=== PATIENT | female | born 1980 | race Caucasian/White ===

== ENCOUNTER 2024-08-05 13:00 | Emergency (ER) | payer BC ==
[2024-08-05] MEDS ORDERED: PANTOPRAZOLE 40 MG INJ ONE ×3 (15:00→16:39)
[2024-08-05] MEDS ORDERED: NA CHLORIDE 0.9% 1,000 ML ONE (15:00)
[2024-08-05] MEDS ORDERED: ONDANSETRON 4 MG/2 ML VIAL ONE ×2 (15:00→16:29)
[2024-08-05 15:04] LABS: Specific Gravity 1.029 (1.005-1.030)
[2024-08-05 15:05] LABS: Specific Gravity 1.029 (1.005-1.030); Sqamous Epithelial <5 /HPF (None Seen); Urine Bacteria <20 /HPF (<20); Urine Bilirubin NEGATIVE (Negative); Urine Blood 2+ (Negative); Urine Clarity Turbid (Clear); Urine Color Yellow (Yellow); Urine Crystals Unidentified Few /HPF (None Seen); Urine Culture Reflex Order NOT NEEDED; Urine Glucose NEGATIVE (Negative); Urine Ketones 1+ (Negative); Urine Microscopic Reflex YN ORDER UMIC; Urine Mucus 1+ /HPF (None Seen); Urine Nitrite NEGATIVE (Negative); Urine Protein 1+ (Negative); Urine RBC <5 /HPF (None Seen); Urine Urobilinogen 1+ (Normal); Urine WBC <5 /HPF (<5)
[2024-08-05 15:37] LABS: Albumin/Globulin Ratio 0.3 (1.1-1.8); Anion Gap 13.1 mEq/L (5.0-15.0); Bilirubin Total 1.3 mg/dL (0.2-1.0); Globulin 5.9 g/dL (2.3-3.5); Potassium 4.1 mEq/L (3.5-5.1); Protein, Total 7.9 g/dL (6.4-8.2)
[2024-08-05 15:45] LABS: Absolute Lymphocytes (CBC) 0.8 K/uL (0.7-4.9); Absolute Monocytes 0.4 K/uL (0.1-1.3); Absolute Neutrophil 3.9 K/uL (1.8-8.0); Basophils % 0.8 % (0-1.3); Eosinophils % 0.1 % (0-4.4); Hematocrit 16.1 % (36.0-45.0); Lymphocytes % 15.5 % (15.3-44.8); MCH 29.5 pg (27.0-35.0); MCHC 33.4 g/dL (32.0-36.0); MCV 88.4 fL (80-100); MPV 9.3 fL (7.6-11.3); Monocytes % 8.4 % (3.3-12.3); Neutrophils % 75.2 % (41.7-73.7); Nucleated Red Blood Cells % 0.1 % (0-0); Platelets 79 thou/uL (152-406); RBC Red Blood Cell Count 1.82 M/uL (3.86-4.86); Red Cell Distribution Width 19.3 % (12.1-15.2)
[2024-08-05 15:52] LABS: Hemoglobin 5.4 g/dL (12.0-15.0)
[2024-08-05] MEDS ORDERED: NA CHLORIDE 0.9% 250 ML ONE ×3 (16:20→19:17)
[2024-08-05] MEDS ORDERED: OCTREOTIDE ACETATE 100 MCG/ML ONE (16:20)
[2024-08-05] MEDS ORDERED: CEFTRIAXONE 1000 MG/VIAL ONE (16:31)
--- NOTE | 2024-08-05 16:32 | RAD REPORT ---
EXAMINATION: CT ABDOMEN AND PELVIS WITH CONTRAST CLINICAL INDICATION: Abdominal pain TECHNIQUE: CT abdomen and pelvis was performed, after the administration of 100 cc Isovue-300.. Sagit morelia and coronal reconstructions were obtained. One or more of the following dose reduction techniques were used: Automated exposure control, adjustment of the mA and kV according to patient si ze, and iterative reconstruction. Unless otherwise specified, incidental findings do not require dedicated imaging follow-up. [id number]. Oral contrast was not given which limits evaluation of bowel and appendix. COMPARISON: ultrasound FINDINGS: Cirrhotic liver. 12 cm bilobed mass extends from the inferior aspect of the left lobe of the liver. I t is heterogeneous. 2 cm heterogeneous mass abuts the anterior aspect of the left lobe of the liver. The remainder of the liver is heterogeneous containing small and larger areas of low density. Some of the hepatic veins are narrowed. The portal vein and IVC are patent. Left upper quadrant varices. The gallbladder is compressed by the large liver mass. The spleen is mildly enlarged. The pancreas right adrenal and kidneys unremarkable. Mild enlargement left adrenal gland likely benig n Normal appendix. No adnexal mass No evidence of diverticulitis. : IMPRESSION: Cirrhosis. The liver is inhomogeneous containing low-density areas. This probably represents a combin ation of inflammation, fatty infiltration and regenerative/dysplastic nodules. A diffuse hepatocellular carcinoma is another consideration but probably less likely. Biopsy is recommended. Th is can be performed with ultrasound guidance. 12 cm lobulated mass extends from the inferior aspect of the left lobe of the liver. This probably re presents hepatocellular carcinoma. An unusual form of macro nodules probably less likely. Biopsy is recommended. This can be performed with ultrasound guidance. 2 cm mass abutting the anterior aspect of the liver presumably neoplastic. Again an inflammatory proc ess is another consideration.
--- NOTE | 2024-08-05 17:27 | EDPHYS ---
Physician Documentation [facility] Name: Barbara Purvis Age: 43 yrs Sex: Female : 1980 Arrival Date: 08/05/2024 Time: 13:00 Bed 2 Private MD: ED Physician Darvin Amaro HPI: 08/05 17:23 This 43 yrs old Female presents to ER via Wheelchair with complaints of Vomiting - kb blood. 17:23 Pt is a 43 year old female who presents for vomiting blood that started last night. kb States this happened for a couple of days a few weeks ago and went away on its own, but this time here is a lot more blood. Denies abd pain, blood in stool, fever. States she hasn't had hematemesis prior to the last episode. 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 - Infectious Disease History:: Denies. - Social history:: Smoking status: Patient denies any tobacco usage or history of. ROS: 17:21 Constitutional: As per HPI kb Exam: 17:21 Head/Face: Normocephalic, atraumatic. ENT: Moist Mucous membranes Cardiovascular: kb Regular rate Respiratory: Respirations even and unlabored. No increased work of breathing. Talking in full sentences Abdomen/GI: Soft, non-tender. No distention Skin: Warm, dry with normal turgor. Normal color. MS/ Extremity: Pulses equal, no cyanosis. Neurovascular intact. Full, normal range of motion. Neuro: Awake and alert, GCS 15, oriented to person, place, time, and situation. 17:21 Constitutional: The patient appears alert, awake, pale, Vital Signs: 13:13 BP 108 / 65; Pulse 112; Resp 16; Temp 98.3; Pulse Ox 100% ; ko1 15:06 BP 107 / 68; Pulse 116; Resp 16; Pulse Ox 100% ; me1 15:30 BP 115 / 71; Pulse 103; Resp 16; Pulse Ox 100% ; me1 16:27 Weight 61.23 kg; eb 16:30 BP 124 / 77; Pulse 97; Resp 15; Pulse Ox 100% ; me1 17:00 BP 121 / 69; Pulse 105; Resp 15; Pulse Ox 100% ; me1 18:00 BP 105 / 57; Pulse 96; Resp 15; Pulse Ox 100% ; me1 19:00 BP 124 / 77; Pulse 99; Resp 16; Pulse Ox 100% on R/A; al5 20:02 al5 20:02 see blood transfusion flow sheet for vitals al5 MDM: 13:10 Medical Screening Exam initiated kb 16:36 Differential diagnosis: GI bleed, cirrhosis, varicies. Data reviewed: vital signs, kb nurses notes. Consideration of Admission/Observation Escalation of care including admission/observation considered. pt will be transferred for GI. Management of patient was discussed with the following: Dr Castro, hospitalist at [facility], accepts pt for admission as long as ok with GI. GI requests CTA abdomen prior to transfer. Historians other than the Patient: Family Member: family. Care significantly affected by the following chronic conditions: Liver Disease. Counseling: I had a detailed discussion with the patient and/or guardian regarding the historical points, exam findings, and any diagnostic results supporting the discharge/admit diagnosis, lab results, radiology results, the need to transfer to another facility, [facility] does not immediately have the required specialist. 08/05 13:17 Order name: CBC with Diff 08/05 13:17 Order name: CMP; Complete Time: 15:38 kb 08/05 13:17 Order name: Lipase; Complete Time: 15:38 kb 08/05 13:17 Order name: Test, Urine; Complete Time: 15:08 kb 08/05 13:17 Order name: Urinalysis w/ reflexes; Complete Time: 15:08 kb 08/05 13:17 Order name: Type And Screen kb 08/05 15:52 Order name: Bb Add On eb 08/05 16:14 Order name: ABO/RH no charge; Complete Time: 16:15 EDGA 08/05 16:17 Order name: Packed RBCs (Additional Unit) EDGA 08/05 18:52 Order name: CBC Smear Scan EDGA 08/05 13:17 Order name: CT Abd/Pelvis - IV Contrast Only; Complete Time: 16:32 kb 08/05 16:36 Order name: CT Abdomen - Angio; Complete Time: 18:01 kb 08/05 16:53 Order name: CT Pelvis Angio; Complete Time: 18:01 eb 08/05 13:17 Order name: IV Saline Lock; Complete Time: 15:19 kb 08/05 13:17 Order name: Labs collected and sent; Complete Time: 15:19 kb Administered Medications: 15:19 Drug: Ondansetron IVP 4 mg IVP once; over 2 minutes Route: IVP; Site: left antecubital; me1 16:10 Follow up: Response: No adverse reaction; Nausea is decreased me1 15:19 Drug: NS 0.9% IV 1000 ml IV at 1 bolus Per protocol; to be given as a bolus over 60 me1 minutes Route: IV; Rate: 1 bolus; Site: left antecubital; 16:51 Follow up: Response: No adverse reaction; IV Status: Completed infusion; IV Intake: me1 1000ml 15:19 Drug: Pantoprazole IVP 40 mg IVP once Route: IVP; Site: left antecubital; me1 16:10 Follow up: Response: No adverse reaction me1 16:27 Drug: Pantoprazole IV 8 mg/hr IV at 25 ml/hr continuous; (Standard dilution is 80 mg in me1 250 mL NS) Route: IV; Rate: 25 ml/hr; Site: left antecubital; 18:55 Follow up: IV Status: Infusion continued upon transfer me1 16:27 Drug: Octreotide IV 50 mcg IV at calculated rate once Route: IV; Rate: calculated rate; wv1 Site: left antecubital; 16:50 Follow up: IV Status: Completed infusion me1 16:38 Drug: Rocephin IV 1 grams IV at calculated rate once; Given slow IV push per pharmacy me1 instructions Route: IV; Rate: calculated rate; Site: left antecubital; 16:50 Follow up: IV Status: Completed infusion me1 16:40 Drug: Pantoprazole IVP 40 mg IVP once Route: IVP; Site: left antecubital; me1 16:50 Follow up: Response: No adverse reaction me1 16:49 Drug: Ondansetron IVP 4 mg IVP once; over 2 minutes Route: IVP; Site: left antecubital; me1 16:50 Follow up: Response: No adverse reaction; Nausea is decreased me1 Disposition Summary: 08/05/24 17:26 Transfer Ordered Notes: Transfer Location: Other [facility] Reason: Higher level of care kb Condition: Stable kb Problem: new kb Symptoms: are unchanged kb Accepting Physician: Dr Castro(08/05/24 20:05) al5 Diagnosis - GI Bleed/ Gastrointestinal hemorrhage, unspecified kb - Liver disease, unspecified kb Forms: - Medication Reconciliation Form kb - SBAR form kb Addendum: 08/08/2024 08:56 Co-signature as Attending Physician, Darvin Amaro MD I reviewed the patient's care r t provided by the Advanced Practice Provider and agree with the diagnosis and treatment plan. Signatures: Dispatcher [employer] EDMelissa Martinez, SOLAR SALES ESTIMATOR-C SOLAR SALES ESTIMATOR-Ckb Desiree Zapata, RN RN ko1 Darvin Amaro MD MD rt Susie Francis RN RN me1 Rosalinda Brown RN RN al5 Corrections: (The following items were deleted from the chart) 08/05 17:27 17:26 Dr Hitchcock [facility] 17:28 16:36 Management of patient was discussed with the following: Dr Hitchcock, hospitalist at [facility], accepts pt for admission as long as ok with GI. GI requests CTA abdomen prior to transfer. : 17:27 Dr Castro al5
--- NOTE | 2024-08-05 17:27 | ER ---
Nurse's Notes [facility] Name: Barbara Purvis Age: 43 yrs Sex: Female : 1980 Arrival Date: 08/05/2024 Time: 13:00 Bed 2 Private MD: Diagnosis: GI Bleed/ Gastrointestinal hemorrhage, unspecified;Liver disease, unspecified Presentation: 08/05 13:13 Chief complaint: Patient states: vomiting dark red blood since yesterday, hx of ulcers, ko1 has happened before but was not seen for it. Coronavirus screen: At this time, the client does not indicate any symptoms associated with coronavirus-19. Ebola Screen: No symptoms or risks identified at this time. Initial Sepsis Screen: Does the patient meet any 2 criteria? No. Patient's initial sepsis screen is negative. Does the patient have a suspected source of infection? No. Patient's initial sepsis screen is negative. Risk Assessment: Do you want to hurt yourself or someone else? Patient reports no desire to harm self or others. Onset of symptoms was August 04, 2024 at 16:00. 13:13 Method Of Arrival: Wheelchair ko1 13:13 Acuity: PRESTON 3 ko1 Triage Assessment: 13:16 General: Appears in no apparent distress. ill, Behavior is calm, cooperative, ko1 appropriate for age. Pain: Denies pain. GI: Reports nausea, vomiting. 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 - Infectious Disease History:: Denies. - Social history:: Smoking status: Patient denies any tobacco usage or history of. Screenin:06 [facility] ED Fall Risk Assessment (Adult) History of falling in the last 3 months, me1 including since admission No falls in past 3 months (0 pts) Confusion or Disorientation No (0 pts) Intoxicated or Sedated No (0 pts) Impaired Gait No (0 pts) Mobility Assist Device Used No (0 pt) Altered Elimination No (0 pt) Score/Fall Risk Level 0 - 2 = Low Risk Maintained a safe environment, Provided non-skid footwear, Hourly rounding (assess needs \T\ fall precautionary measures) done. Abuse screen: Denies threats or abuse. Nutritional screening: No deficits noted. Tuberculosis screening: No symptoms or risk factors identified. Assessment: 15:06 General: Appears uncomfortable, ill, well developed, well nourished, Behavior is calm, me1 cooperative, appropriate for age, Reports vomiting dark red blood since yesterday, hx of ulcers, has happened before but was not seen for it. Pain: Denies pain. Neuro: Level of Consciousness is awake, alert, obeys commands, Oriented to person, place, time, situation, Appropriate for age. Cardiovascular: Patient's skin is warm and dry. Respiratory: Airway is patent Trachea midline Respiratory effort is even, unlabored, Respiratory pattern is regular, symmetrical. GI: Abdomen is flat, Reports nausea, vomiting, bloody emesis since yesterday. : No signs and/or symptoms were reported regarding the genitourinary system. EENT: No signs and/or symptoms were reported regarding the EENT system. Derm: Skin is intact, is healthy with good turgor, Skin is pink, warm \T\ dry. Musculoskeletal: No signs and/or symptoms reported regarding the musculoskeletal system. 17:00 Reassessment: Started first unit of PRBCs. me1 18:52 Reassessment: 1st unit of PRBCs completed. me1 19:12 General: Appears in no apparent distress. comfortable, Behavior is calm, cooperative. al5 Pain: Denies pain. Neuro: Level of Consciousness is awake, alert, obeys commands, Oriented to person, place, time, situation. Cardiovascular: Capillary refill < 3 seconds Patient's skin is warm and dry. Respiratory: Airway is patent Respiratory effort is even, unlabored, Respiratory pattern is regular, symmetrical. GI: Abdomen is flat, non-distended. : No signs and/or symptoms were reported regarding the genitourinary system. EENT: No signs and/or symptoms were reported regarding the EENT system. Derm: Skin is intact, is healthy with good turgor, Skin is pink, warm \T\ dry. normal. Musculoskeletal: No signs and/or symptoms reported regarding the musculoskeletal system. 19:13 General: Report called to AGAPITO Burrell at [facility] 5th floor. me1 20:03 Reassessment: report given to [facility] and performed blood check on blood al5 products being administered to patient. transfer of care given. Vital Signs: 13:13 BP 108 / 65; Pulse 112; Resp 16; Temp 98.3; Pulse Ox 100% ; ko1 15:06 BP 107 / 68; Pulse 116; Resp 16; Pulse Ox 100% ; me1 15:30 BP 115 / 71; Pulse 103; Resp 16; Pulse Ox 100% ; me1 16:27 Weight 61.23 kg; eb 16:30 BP 124 / 77; Pulse 97; Resp 15; Pulse Ox 100% ; me1 17:00 BP 121 / 69; Pulse 105; Resp 15; Pulse Ox 100% ; me1 18:00 BP 105 / 57; Pulse 96; Resp 15; Pulse Ox 100% ; me1 19:00 BP 124 / 77; Pulse 99; Resp 16; Pulse Ox 100% on R/A; al5 20:02 al5 20:02 see blood transfusion flow sheet for vitals al5 ED Course: 13:02 Patient arrived in ED. im 13:10 Melissa Borjas FNP-C is PHCP. kb 13:10 Darvin Amaro MD is Attending Physician. kb 13:16 Triage completed. ko1 13:16 Arm band placed on right wrist. Patient placed in waiting room, Patient notified of ko1 wait time. 14:41 Susie Francis, RN is Primary Nurse. me1 14:48 Susie Francis RN is Primary Nurse. me1 14:58 Test, Urine Sent. me1 14:58 Urinalysis w/ reflexes Sent. me1 14:58 Urine collected: clean catch specimen, cloudy, bogdan colored. me1 15:06 Patient has correct armband on for positive identification. Bed in low position. Call me1 light in reach. Side rails up X2. Provided Education on: POC. Verbalized understanding.. Client placed on continuous cardiac and pulse oximetry monitoring. NIBP monitoring applied. Pulse ox on. NIBP on. 15:06 No provider procedures requiring assistance completed. Initial lab(s) drawn, by [facility], [facility] sent to lab. T\T\S collected, blood band applied to patient. Inserted saline lock: 22 gauge in left antecubital area, using aseptic technique. 15:19 CBC with Diff Sent. me1 15:19 Type And Screen Sent. me1 15:19 CMP Sent. me1 15:19 Lipase Sent. me1 16:02 CT Abd/Pelvis - IV Contrast Only In Process Unspecified. EDMS 16:05 initiated a transfer with Erick from the [facility]. eb 16:10 Bb Add On Sent. me1 16:23 connected the Hospitalist workday consultant for [facility] with Melissa Osorio for patient transfer eb consultation. 16:46 Inserted saline lock: 22 gauge in left antecubital area, using aseptic technique. hb 17:28 CT Abdomen - Angio In Process Unspecified. EDMS 17:29 CT Pelvis Angio In Process Unspecified. EDMS 18:03 faxed angio results to transfer center. eb 18:44 administrative approval given by Erick Edmonds/ patient has been accepted to [facility] [id number]/ Dr. Grisel Castro has accepted the patient in transfer/ report to be called to [phone]. 20:04 Patient transferred, IV remains in place. al5 Administered Medications: 15:19 Drug: Ondansetron IVP 4 mg IVP once; over 2 minutes Route: IVP; Site: left antecubital; me1 16:10 Follow up: Response: No adverse reaction; Nausea is decreased me1 15:19 Drug: NS 0.9% IV 1000 ml IV at 1 bolus Per protocol; to be given as a bolus over 60 me1 minutes Route: IV; Rate: 1 bolus; Site: left antecubital; 16:51 Follow up: Response: No adverse reaction; IV Status: Completed infusion; IV Intake: me1 1000ml 15:19 Drug: Pantoprazole IVP 40 mg IVP once Route: IVP; Site: left antecubital; me1 16:10 Follow up: Response: No adverse reaction me1 16:27 Drug: Pantoprazole IV 8 mg/hr IV at 25 ml/hr continuous; (Standard dilution is 80 mg in me1 250 mL NS) Route: IV; Rate: 25 ml/hr; Site: left antecubital; 18:55 Follow up: IV Status: Infusion continued upon transfer me1 16:27 Drug: Octreotide IV 50 mcg IV at calculated rate once Route: IV; Rate: calculated rate; me1 Site: left antecubital; 16:50 Follow up: IV Status: Completed infusion me1 16:38 Drug: Rocephin IV 1 grams IV at calculated rate once; Given slow IV push per pharmacy me1 instructions Route: IV; Rate: calculated rate; Site: left antecubital; 16:50 Follow up: IV Status: Completed infusion me1 16:40 Drug: Pantoprazole IVP 40 mg IVP once Route: IVP; Site: left antecubital; me1 16:50 Follow up: Response: No adverse reaction me1 16:49 Drug: Ondansetron IVP 4 mg IVP once; over 2 minutes Route: IVP; Site: left antecubital; me1 16:50 Follow up: Response: No adverse reaction; Nausea is decreased me1 Medication: 15:06 VIS not applicable for this client. me1 Intake: 16:51 IV: 1000ml; Total: 1000ml. me1 Outcome: 17:26 ER care complete, transfer ordered by MD. kb 20:04 Transferred by [facility]. Transfer form completed. Note: [facility] al5 [facility] 20:04 Condition: stable 20:04 Instructed on the need for transfer, 20:05 Patient left the ED. al5 Signatures: Dispatcher [employer] Melissa Light, BICYCLE FITTER-C BICYCLE FITTER-Ckb Melissa Rodriguez, RN RN Latasha Altman Kathy, RN RN ko1 Ana Andrea Michelle, RN RN me1 Rosalinda Brown RN RN al5 Corrections: (The following items were deleted from the chart) 15:06 13:13 Chief complaint: Patient states: vomiting dark red blood since yesterday, hx of me1 ulcers, has happened before but was not seen for it, koAlicia
--- NOTE | 2024-08-05 17:58 | RAD REPORT ---
EXAM:Abdomen Angio CLINICAL HISTORY: Gastrointestinal bleeding TECHNIQUE: Computed tomography angiography of the abdomen obtained. MIPS reconstruction performed.. 75 cc Isovue -370 administered intravenously. Axial, sagittal and coronal reconstructions were obtained. One or more of the following dose reduction techniques were used: Automated exposure control, adjustment of the mA and kV according to patient size, and iterative reconstruction. Unless otherwise specified, incidental findings do not require dedicated imaging follow-up. COMPARISON: August 05, 2024 CT FINDINGS: The celiac, SMA, renal and JAZLYN arteries are normal caliber. The common, internal and external iliac arteries unremarkable. Common femoral and visualized facial and deep femoral arteries unremarkable. No abnormal enhancement is visualized within bowel. Cirrhotic liver with 12 cm mass likely of hepatocellular carcinoma again demonstrated. Additional 2 c m enhancing mass anterior aspect left lobe of the liver may represent additional neoplasm. Stranding within the peripancreatic fat has developed since the prior exam which may indicate pancrea titis IMPRESSION: No abnormal enhancement is visualized within bowel to suggest active bleeding during this exam. Cirrhosis 12 cm hepatic mass likely hepatocellular carcinoma Additional 2 cm hepatic mass may represent additional neoplasm.
--- NOTE | 2024-08-05 18:01 | RAD REPORT ---
EXAM:Pelvis Angio CLINICAL HISTORY: Gastrointestinal bleeding TECHNIQUE: Computed tomography angiography of the pelvis obtained. MIPS reconstruction performed.. 75 cc Isovue- 370 administered intravenously. Axial, sagittal and coronal reconstructions were obtained. One or more of the following dose reduction techniques were used: Automated exposure control, adjustment of the mA and kV according to patient size, and iterative reconstruction. Unless otherwise specified, incidental findings do not require dedicated imaging follow-up. COMPARISON: August 05, 2024 CT FINDINGS: The celiac, SMA, renal and JAZLYN arteries are normal caliber. The common, internal and external iliac arteries unremarkable. Common femoral and visualized facial and deep femoral arteries unremarkable. No abnormal enhancement is visualized within bowel. Cirrhotic liver with 12 cm mass likely of hepatocellular carcinoma again demonstrated. Additional 2 c m enhancing mass anterior aspect left lobe of the liver may represent additional neoplasm. Stranding within the peripancreatic fat has developed since the prior exam which may indicate pancrea titis IMPRESSION: No abnormal enhancement is visualized within bowel to suggest active bleeding during this exam.
[2024-08-05 18:51] LABS: Blood Morphology Comment NOT SEEN (NOT SEEN); Platelet Estimate DECR; White Blood Cell Scan OK (OK)
[2024-08-05 22:38] VITALS: TEMP 98.3; O2SAT 100
[2024-08-05 22:45] VITALS: BP 124/77
== END 2024-08-05 20:05 | disposition short-term general hospital (02) ==
LOC: ER 13:00
PROC: 30233N1 Transfusion of Nonautologous Red Blood Cells into Peripheral Vein, Percutaneous Approach (ICD-10-PCS; principal; 2024-08-05)
DX: K92.2 Gastrointestinal hemorrhage, unspecified (principal); K76.9 Liver disease, unspecified
CPT/HCPCS: 96365; 96361; 96368; 85025; 81001; 36415; 86900; 86850; 81025; 86901; 86920 ×2; 83690; 80053; 72191; 74175; 74177; 96375; 99285; 96366; 36430; Q9967 ×2; J2354; J2470 ×3; J2405 ×2; P9016 ×2; J7050 ×3; J7030; J0696; 75635

== ENCOUNTER 2024-10-11 19:10 | Emergency (ER) | payer BC ==
[2024-10-11] MEDS ORDERED: ONDANSETRON 4 MG/2 ML VIAL ONE (20:25)
[2024-10-11] MEDS ORDERED: CEFTRIAXONE 2000 MG/VIAL ONE (20:26)
[2024-10-11] MEDS ORDERED: OCTREOTIDE ACETATE 100 MCG/ML ONE (20:26)
[2024-10-11] MEDS ORDERED: NA CHLORIDE 0.9% 250 ML ONE (20:26)
[2024-10-11] MEDS ORDERED: PANTOPRAZOLE 40 MG INJ ONE (20:26)
[2024-10-11 20:29] LABS: PT Prothrombin Time 22.8 SECONDS (10-13.0); PTT, Activated Partial Thromb 36.5 SECONDS (27.2-37.4); Protime INR 2.07
[2024-10-11 20:37] LABS: Absolute Lymphocytes (CBC) 0.4 K/uL (0.7-4.9); Absolute Monocytes 0.3 K/uL (0.1-1.3); Absolute Neutrophil 2.7 K/uL (1.8-8.0); Albumin 1.6 g/dL (3.4-5.0); Albumin/Globulin Ratio 0.2 (1.1-1.8); Anion Gap 11.2 mEq/L (5.0-15.0); Basophils % 0.7 % (0-1.3); Bilirubin Total 3.4 mg/dL (0.2-1.0); Eosinophils % 0.1 % (0-4.4); Globulin 7.1 g/dL (2.3-3.5); Lymphocytes % 12.9 % (15.3-44.8); Monocytes % 7.7 % (3.3-12.3); Neutrophils % 78.6 % (41.7-73.7); Nucleated Red Blood Cells % 0.3 % (0-0); Potassium 4.2 mEq/L (3.5-5.1); Protein, Total 8.7 g/dL (6.4-8.2)
[2024-10-11 20:56] LABS: Hemoglobin 7.8 g/dL (12.0-15.0); MCH 27.5 pg (27.0-35.0); MCHC 32.6 g/dL (32.0-36.0); MCV 84.4 fL (80-100); MPV 9.2 fL (7.6-11.3); Platelets 72 thou/uL (152-406); RBC Red Blood Cell Count 2.85 M/uL (3.86-4.86); Red Cell Distribution Width 22.6 % (12.1-15.2)
[2024-10-11] MEDS ORDERED: NA CHLORIDE 0.9% 1,000 ML ONE (20:59)
--- NOTE | 2024-10-11 21:56 | RAD REPORT ---
EXAM:Pelvis Angio CLINICAL HISTORY: Gastrointestinal bleeding. Hemoptysis TECHNIQUE: Computed tomography angiography of the pelvis obtained. MIPS reconstruction performed.. 100 cc Isovue -370 administered intravenously. Axial, sagittal and coronal reconstructions were obtained. One or more of the following dose reduction techniques were used: Automated exposure control, adjustment of the mA and kV according to patient size, and iterative reconstruction. Unless otherwise specified, incidental findings do not require dedicated imaging follow-up. COMPARISON: July 2024 CT FINDINGS: Celiac, SMA and JAZLYN unremarkable. Abdominal aorta, right and left common iliac, right and left external iliac, right and left internal iliac, and right and left common femoral arteries unremarkable No aneurysm. No dissection. No abnormal enhancement visualized within stomach, small bowel or colon. Cirrhotic, inhomogeneous liver again demonstrated. Masses extending off of the anterior and posterior aspect of the liver again demonstrated. Splenomegaly. Pancreas, adrenals and kidneys unremarkable Varices are present within the abdomen. No evidence of diverticulitis. Small to moderate amount of ascites. IMPRESSION: No abnormal enhancement visualized within the bowel to suggest active GI bleeding. Cirrhosis with inhomogeneous liver and hepatic masses without significant change
--- NOTE | 2024-10-11 21:56 | RAD REPORT ---
EXAM:Abdomen Angio CLINICAL HISTORY: Hemoptysis. Gastrointestinal bleeding TECHNIQUE: Computed tomography angiography of the abdomen obtained. MIPS reconstruction performed.. 100 cc Isovu e-370 administered intravenously. Axial, sagittal and coronal reconstructions were obtained. One or more of the following dose reduction techniques were used: Automated exposure control, adjustment of the mA and kV according to patient size, and iterative reconstruction. Unless otherwise specified, incidental findings do not require dedicated imaging follow-up. COMPARISON: July 2024 FINDINGS: Celiac, SMA and JAZLYN unremarkable. Abdominal aorta, right and left common iliac, right and left external iliac, right and left internal iliac, and right and left common femoral arteries unremarkable No aneurysm. No dissection. No abnormal enhancement visualized within stomach, small bowel or colon. Cirrhotic, inhomogeneous liver again demonstrated. Masses extending off of the anterior and posterior aspect of the liver again demonstrated. Splenomegaly. Pancreas, adrenals and kidneys unremarkable Varices are present within the abdomen. No evidence of diverticulitis. Small to moderate amount of ascites. IMPRESSION: No abnormal enhancement visualized within the bowel to suggest active GI bleeding. Cirrhosis with inhomogeneous liver and hepatic masses without significant change
[2024-10-11 22:10] LABS: Anisocytosis 2+; Blood Morphology Comment NOTED (NOT SEEN); Hypochromasia 1+; Platelet Estimate DECR; Polychromasia 1+; White Blood Cell Scan OK (OK)
--- NOTE | 2024-10-11 22:11 | ER ---
Nurse's Notes [facility] Nikita Name: Barbara Purvis Age: 44 yrs Sex: Female : 1980 Arrival Date: 10/11/2024 Time: 19:10 Bed 6 Private MD: Diagnosis: Hematemesis;Melena Presentation: 10/11 19:29 Chief complaint: Patient states: vomiting pure blood and my stool is black, it started iw yesterday, was recently here for the same thing and was told she had bleeding from esophagus , diagnosed with cirrhosis 4 years ago , they transferred me to [facility] for a banding procedure. Coronavirus screen: At this time, the client does not indicate any symptoms associated with coronavirus-19. Ebola Screen: No symptoms or risks identified at this time. Initial Sepsis Screen: Does the patient meet any 2 criteria? No. Patient's initial sepsis screen is negative. Does the patient have a suspected source of infection? No. Patient's initial sepsis screen is negative. Risk Assessment: Do you want to hurt yourself or someone else? Patient reports no desire to harm self or others. Onset of symptoms was October 10, 2024. 19:29 Method Of Arrival: Wheelchair iw 19:29 Acuity: PRESTON 2 iw Historical: - Allergies: 19:31 No Known Allergies; iw - PMHx: 19:31 Liver disease; iw - PSHx: 19:31 Ligation of fallopian tube; iw - Immunization history:: Adult Immunizations not up to date. - Infectious Disease History:: Denies. - Social history:: Patient uses stopped drinking 2 years ago , Smoking status: Patient reports the use of cigarette tobacco products. - Family history:: not pertinent. Screenin:27 [facility] ED Fall Risk Assessment (Adult) History of falling in the last 3 months, kd3 including since admission No falls in past 3 months (0 pts) Confusion or Disorientation No (0 pts) Intoxicated or Sedated No (0 pts) Impaired Gait No (0 pts) Mobility Assist Device Used No (0 pt) Altered Elimination No (0 pt) Score/Fall Risk Level 0 - 2 = Low Risk Oriented to surroundings. Abuse screen: Denies threats or abuse. Denies injuries from another. Nutritional screening: No deficits noted. Tuberculosis screening: No symptoms or risk factors identified. Assessment: 21:27 General: Appears uncomfortable, ill, Behavior is calm, cooperative. Pain: Complains of kd3 pain in abdomen. GI: Abdomen is round Reports nausea, vomiting. Vital Signs: 19:29 BP 130 / 73; Pulse 100; Resp 16; Temp 97.4; Pulse Ox 99% on R/A; Weight 53.52 kg; iw Height 5 ft. 6 in. ; 20:50 BP 144 / 88; Pulse 103; Resp 16; Pulse Ox 99% on R/A; kd3 21:00 BP 146 / 100; Pulse 97; Resp 16; Pulse Ox 100% on R/A; kd3 23:24 BP 131 / 67; Pulse 108; Resp 19; Pulse Ox 97% on R/A; kd3 10/12 02:45 BP 130 / 90; Pulse 110; Resp 16; Pulse Ox 100% on R/A; jb4 03:06 BP 135 / 81; Pulse 110; Resp 16; Pulse Ox 100% on R/A; kd3 10/11 19:29 Body Mass Index 19.05 (53.52 kg, 167.64 cm) iw ED Course: 10/11 19:13 Patient arrived in ED. im 19:31 Triage completed. iw 19:32 Arm band placed on. iw 19:58 Darvin Amaro MD is Attending Physician. rt 20:03 Lauryn Gutierres, RN is Primary Nurse. kd3 20:16 CBC with Diff Sent. kd3 20:16 CMP Sent. kd3 20:16 Lipase Sent. kd3 20:16 Ptt, Activated Sent. kd3 20:16 Protime (+inr) Sent. kd3 20:26 Inserted saline lock: 22 gauge in left antecubital area, using aseptic technique. Blood mm11 collected. Flushed with 10 mL NS. 20:26 EKG done, by ED staff, reviewed by Darvin Amaro MD. mm11 20:26 CBC with Diff Sent. mm11 20:26 CMP Sent. mm11 20:27 Lipase Sent. mm11 20:34 Type And Screen Sent. mm11 20:49 Type And Screen Sent. kd3 21:27 CT Abdomen - Angio In Process Unspecified. EDMS 21:27 Pelvis Angio In Process Unspecified. EDMS 21:27 Patient has correct armband on for positive identification. kd3 22:17 Initiated transfer with Yahaira at [facility]. rv1 23:09 Doc to Doc with Hospitalist at [facility]. rv1 23:33 Pt awaiting bed placement at [facility]. Per Yahaira Betts at [facility] patient is on the rv1 waiting list for a bed. 10/12 01:19 Called for update on bed placement, patient is still on wait list awaiting placement. rv1 02:12 Initiated transfer with Zoe at [facility]. rv1 02:25 Doc to Doc with hospitalist at [facility]. rv1 02:[address] Mendoza to [facility] 10C Rm 1049. Report #[id number]. rv1 03:57 No provider procedures requiring assistance completed. Patient transferred, IV remains lg3 in place. Administered Medications: 10/11 20:49 Drug: Pantoprazole IV 8 mg/hr IV at 25 ml/hr continuous; (Standard dilution is 80 mg in kd3 250 mL NS) Route: IV; Rate: 25 ml/hr; Site: left antecubital; 10/12 03:57 Follow up: IV Status: Infusion continued upon transfer 3 10/11 20:49 Drug: Rocephin IV 2 grams IV at calculated rate once; Given slow IV push per pharmaApalyay kd3 instructions Route: IV; Rate: calculated rate; Site: left antecubital; 10/12 03:08 Follow up: Response: No adverse reaction [facility] 10/11 20:49 Drug: Octreotide Sub-Q 50 mcg Sub-Q once Route: Sub-Q; Site: left lower abdomen; 3 10/12 03:07 Follow up: Response: No adverse reaction [facility] 10/11 20:50 Drug: Ondansetron IVP 4 mg IVP once; over 2 minutes Route: IVP; Site: left antecubital; 3 10/12 03:08 Follow up: Response: No adverse reaction; Nausea is decreased [facility] 10/11 20:50 Drug: Pantoprazole IVP 40 mg IVP once Route: IVP; Site: left antecubital; 3 10/12 03:08 Follow up: Response: No adverse reaction [facility] 10/11 21:01 Drug: NS 0.9% IV 1000 ml IV at 1 bolus Per protocol; to be given as a bolus over 60 kd3 minutes Route: IV; Rate: 1 bolus; Site: left antecubital; 10/12 03:07 Follow up: Response: No adverse reaction; IV Status: Completed infusion kd3 Medication: 10/11 21:27 VIS not applicable for this client. kd3 Outcome: 22:10 ER care complete, transfer ordered by MD. carrasco 10/12 03:57 Transferred by ground EMS to [facility], Transfer form lg3 completed. Condition: stable Instructed on the need for transfer, Demonstrated understanding of instructions, 03:58 Patient left the ED. lg3 Signatures: Dispatcher [employer] EDBrenda López RN Vini Ferrer RN RN [email or web address] Shellie Palmer RN RN [email or web address] Lauryn Gutierres RN RN kd3 Darvin Amaro MD MD rt Hetal Prescott rv1 Ana Andrea monty mm11
--- NOTE | 2024-10-11 22:11 | EDPHYS ---
Physician Documentation [facility] Name: Barbara Purvis Age: 44 yrs Sex: Female : 1980 Arrival Date: 10/11/2024 Time: 19:10 Bed 6 Private MD: ED Physician Darvin Amaro HPI: 10/11 20:22 This 44 yrs old Female presents to ER via Wheelchair with complaints of Vomiting - rt blood. 20:22 Patient has a history of cirrhosis with bleeding varix banded in July. Patient rt states that starting yesterday, she started vomiting blood and having black tarry stools, similar in character but to a lesser extent than in July. States that he feels weak, fatigued. Denies other acute complaints at this time, symptoms are moderate in severity, no other aggravating or alleviating factors.. Historical: - Allergies: 19: No Known Allergies; iw - PMHx: 19:31 Liver disease; iw - PSHx: 19:31 Ligation of fallopian tube; iw - Immunization history:: Adult Immunizations not up to date. - Infectious Disease History:: Denies. - Social history:: Patient uses stopped drinking 2 years ago , Smoking status: Patient reports the use of cigarette tobacco products. - Family history:: not pertinent. ROS: 20:22 Cardiovascular: Negative for chest pain, palpitations, and edema, Respiratory: Negative rt for shortness of breath, cough, wheezing, and pleuritic chest pain, MS/Extremity: Negative for injury and deformity, Skin: Negative for injury, rash, and discoloration, 20:22 Constitutional: Positive for fatigue, Negative for fever, 20:22 Abdomen/GI: Positive for hematemesis, black/tarry stool, 20:22 Neuro: Positive for dizziness, weakness, Exam: 20:22 Constitutional: This is a well developed, well nourished patient who is awake, alert, rt and in no acute distress. Head/Face: Normocephalic, atraumatic. Chest/axilla: Normal chest wall appearance and motion. Nontender with no deformity. No lesions are appreciated. Cardiovascular: Regular rate and rhythm with a normal S1 and S2. No gallops, murmurs, or rubs. Normal PMI, no JVD. No pulse deficits. Respiratory: Lungs have equal breath sounds bilaterally, clear to auscultation and percussion. No rales, rhonchi or wheezes noted. No increased work of breathing, no retractions or nasal flaring. Abdomen/GI: Soft, non-tender, with normal bowel sounds. No distension or tympany. No guarding or rebound. No evidence of tenderness throughout. Skin: Warm, dry with normal turgor. Normal color with no rashes, no lesions, and no evidence of cellulitis. MS/ Extremity: Pulses equal, no cyanosis. Neurovascular intact. Full, normal range of motion. Neuro: Awake and alert, GCS 15, oriented to person, place, time, and situation. Cranial nerves II-XII grossly intact. Motor strength 5/5 in all extremities. Sensory grossly intact. Cerebellar exam normal. Normal gait. 20:22 ECG was reviewed by the Attending Physician. Vital Signs: 19:29 BP 130 / 73; Pulse 100; Resp 16; Temp 97.4; Pulse Ox 99% on R/A; Weight 53.52 kg; iw Height 5 ft. 6 in. ; 20:50 BP 144 / 88; Pulse 103; Resp 16; Pulse Ox 99% on R/A; kd3 21:00 BP 146 / 100; Pulse 97; Resp 16; Pulse Ox 100% on R/A; kd3 23:24 BP 131 / 67; Pulse 108; Resp 19; Pulse Ox 97% on R/A; kd3 10/12 02:45 BP 130 / 90; Pulse 110; Resp 16; Pulse Ox 100% on R/A; jb4 03:06 BP 135 / 81; Pulse 110; Resp 16; Pulse Ox 100% on R/A; kd3 10/11 19:29 Body Mass Index 19.05 (53.52 kg, 167.64 cm) iw MDM: 10/11 20:00 Medical Screening Exam initiated rt 10/12 01:33 Differential diagnosis: Bleeding varix, gastritis, ulcer. Data reviewed: vital signs, rt nurses notes, lab test result(s), radiologic studies. Consideration of Admission/Observation Escalation of care including admission/observation considered. Patient requires transfer for GI evaluation. Management of patient was discussed with the following: Hospitalist: Discussed with accepting hospitalist at [facility]. I considered the following discharge prescriptions or medication management in the emergency department Medications were administered in the Emergency Department. See MAR. Independent interpretation of the following test(s) in the Emergency Department CT Scan: My interpretation is No bowel obstruction syndrome interpretation of CT scan images. Care significantly affected by the following chronic conditions: Cirrhosis. Counseling: I had a detailed discussion with the patient and/or guardian regarding the historical points, exam findings, and any diagnostic results supporting the discharge/admit diagnosis, lab results, radiology results, the need to transfer to another facility. Response to treatment: There is no appreciated change of the patient's symptoms at this time. 03:47 ED course: Patient was initially accepted at [facility] but was rt placed on a waiting list. Could not provide any information regarding timing of this. As patient likely has a variceal bleed, awaiting for room to become available would put the patient at risk, therefore, I elected to transfer the patient to an appropriate facility that can take the patient immediately.. 10/11 19:53 Order name: CBC with Diff; Complete Time: 22:11 rn 10/11 19:53 Order name: CMP; Complete Time: 21:10 rn 10/11 19:53 Order name: Lipase; Complete Time: 21:10 rn 10/11 19:53 Order name: Protime (+inr); Complete Time: 21:10 rn 10/11 19:53 Order name: Ptt, Activated; Complete Time: 21:10 rn 10/11 20:07 Order name: Type And Screen; Complete Time: 22:27 rt 10/11 22:10 Order name: CBC Smear Scan; Complete Time: 22:11 EDMS 10/11 20:07 Order name: CT Abdomen - Angio; Complete Time: 21:57 rt 10/11 21:03 Order name: Pelvis Angio; Complete Time: 21:57 EDMS 10/11 19:53 Order name: EKG; Complete Time: 19:54 rn 10/11 19:53 Order name: IV Saline Lock; Complete Time: 20:16 rn 10/11 19:53 Order name: Labs collected and sent; Complete Time: 20:16 rn 10/11 19:53 Order name: EKG - Nurse/Tech; Complete Time: 20:17 rn EC/02 20:22 Rate is 99 beats/min. Rhythm is regular, Normal Sinus Rhythm with No ectopy. QRS [place] rt is Normal. NE interval is normal. QRS interval is normal. QT interval is normal. No Q waves. T waves are Normal. No ST changes noted. Interpreted by me. Administered Medications: 20:49 Drug: Pantoprazole IV 8 mg/hr IV at 25 ml/hr continuous; (Standard dilution is 80 mg in kd3 250 mL NS) Route: IV; Rate: 25 ml/hr; Site: left antecubital; 10/12 03:57 Follow up: IV Status: Infusion continued upon transfer 3 10/11 20:49 Drug: Rocephin IV 2 grams IV at calculated rate once; Given slow IV push per pharmarcy kd3 instructions Route: IV; Rate: calculated rate; Site: left antecubital; 10/12 03:08 Follow up: Response: No adverse reaction 3 10/11 20:49 Drug: Octreotide Sub-Q 50 mcg Sub-Q once Route: Sub-Q; Site: left lower abdomen; kd3 10/12 03:07 Follow up: Response: No adverse reaction 3 10/11 20:50 Drug: Ondansetron IVP 4 mg IVP once; over 2 minutes Route: IVP; Site: left antecubital; kd3 10/12 03:08 Follow up: Response: No adverse reaction; Nausea is decreased 3 10/11 20:50 Drug: Pantoprazole IVP 40 mg IVP once Route: IVP; Site: left antecubital; kd3 10/12 03:08 Follow up: Response: No adverse reaction 3 10/11 21:01 Drug: NS 0.9% IV 1000 ml IV at 1 bolus Per protocol; to be given as a bolus over 60 kd3 minutes Route: IV; Rate: 1 bolus; Site: left antecubital; 10/12 03:07 Follow up: Response: No adverse reaction; IV Status: Completed infusion kd3 Disposition Summary: 10/11/24 22:10 Transfer Ordered Notes: Reason: Higher level of care rt Condition: Fair rt Problem: new rt Symptoms: are unchanged rt [facility] rt Accepting Physician: (10/12/24 03:58) lg3 Diagnosis - Hematemesis rt - Melena rt Forms: - Medication Reconciliation Form rt - SBAR form rt Signatures: Dispatcher [employer] Brenda Hamilton RN Hans Guallpa MD MD rn Able, Lacie, RN RN lg3 Lauryn Gutierres, RN RN kd3 Darvin Amaro MD MD rt Corrections: (The following items were deleted from the chart) 10/11 20:07 20:07 Abdomen Angio+CT.RAD.BRZ ordered. EDMS EDMS 10/12 02:32 04 22:10 rt rt 10/12 02:32 10/11 22:10 [facility] rt rt 10/12 03:58 02:32 DrEvaristo rt lg3
[2024-10-12] MEDS ORDERED: PANTOPRAZOLE 40 MG INJ ONE (00:09)
[2024-10-12] MEDS ORDERED: NA CHLORIDE 0.9% 0 ML ONE (00:10)
[2024-10-12 04:20] VITALS: TEMP 97.4
[2024-10-12 04:25] VITALS: O2SAT 100
[2024-10-12 04:26] VITALS: BP 135/81
--- NOTE | 2024-10-13 13:29 | EKG ---
Test Date: 2024-10-11 Test Time: 20:11:23 Cmo & President: NIKKIE MEASUREMENT RESULTS: Intervals: Rate: 99 LA: 146 QRSD: 84 QT: 370 QTc: 474 [place]: P: 72 LA: 146 QRS: 15 T: 33 INTERPRETIVE STATEMENTS: Normal sinus rhythm Normal ECG No previous ECG available for comparison Electronically Signed On 10-13-24 13:19:53 CDT by Ernst Reardon
== END 2024-10-12 03:58 | disposition short-term general hospital (02) ==
LOC: ER 19:10
DX: K92.0 Hematemesis (principal); K92.1 Melena; K74.60 Unspecified cirrhosis of liver; Z72.0 Tobacco use
CPT/HCPCS: 96365; 93005; 85025; 36415; 86900; 86850; 85610; 86901; 85730; 83690; 80053; 72191; 74175; 96375; 96372; 99285; 96366; Q9967; J2354; J2470; J2405; J0696; J7050; J7030

== ENCOUNTER 2024-11-28 21:05 | Emergency (ER) | payer BC ==
[2024-11-28 22:13] LABS: Absolute Lymphocytes (CBC) 0.6 K/uL (0.7-4.9); Absolute Monocytes 0.3 K/uL (0.1-1.3); Absolute Neutrophil 1.5 K/uL (1.8-8.0); Basophils % 1.4 % (0-1.3); Eosinophils % 1.4 % (0-4.4); Hematocrit 22.8 % (36.0-45.0); Hemoglobin 7.7 g/dL (12.0-15.0); Lymphocytes % 23.9 % (15.3-44.8); MCH 31.6 pg (27.0-35.0); MCV 93.1 fL (80-100); MPV 9.3 fL (7.6-11.3); Monocytes % 11.3 % (3.3-12.3); Nucleated Red Blood Cells % 0.1 % (0-0); Platelets 40 thou/uL (152-406); RBC Red Blood Cell Count 2.45 M/uL (3.86-4.86); Red Cell Distribution Width 17.3 % (12.1-15.2)
[2024-11-28] MEDS ORDERED: CEFTRIAXONE 1000 MG/VIAL ONE (22:27)
[2024-11-28] MEDS ORDERED: NA CHLORIDE 0.9% 250 ML ONE (22:28)
[2024-11-28] MEDS ORDERED: ONDANSETRON 4 MG/2 ML VIAL ONE (22:28)
[2024-11-28] MEDS ORDERED: PANTOPRAZOLE 40 MG INJ ONE ×2 (22:28→22:30)
[2024-11-28] MEDS ORDERED: OCTREOTIDE ACETATE 500 MCG/ML ONE (22:28)
[2024-11-28] MEDS ORDERED: FAMOTIDINE 20 MG/2 ML VIAL IV ONE (22:28)
[2024-11-28 22:29] LABS: Albumin 1.6 g/dL (3.4-5.0); Albumin/Globulin Ratio 0.2 (1.1-1.8); Anion Gap 7.9 mEq/L (5.0-15.0); Bilirubin Total 1.8 mg/dL (0.2-1.0); Globulin 6.5 g/dL (2.3-3.5); Potassium 3.9 mEq/L (3.5-5.1); Protein, Total 8.1 g/dL (6.4-8.2)
[2024-11-28] MEDS ORDERED: NA CHLORIDE 0.9% 1,000 ML ONE (22:29)
[2024-11-28] MEDS ORDERED: NA CHLORIDE 0.9% 500 ML ONE ×2 (23:01→23:30)
[2024-11-28] MEDS ORDERED: DIPHENHYDRAMINE 50 MG/ML VIAL ONE (23:29)
--- NOTE | 2024-11-28 23:38 | ER ---
Nurse's Notes [facility] Name: Barbara Purvis Age: 44 yrs Sex: Female : 1980 Arrival Date: 11/28/2024 Time: 21:05 Bed 4 Private MD: Diagnosis: Acute upper GI bleed, acute hematemesis, history of esophageal varices, liver cirrhosis, symptomatic anemia, acute blood loss anemia Presentation: 11/28 21:39 Chief complaint: Patient states: VOMITING BLOOD FOR THE LAST 2 HOURS. HAS BEEN HERE FOR br2 THIS IN THE PAST. Coronavirus screen: Client denies travel out of the [place] in the last 14 days. Ebola Screen: Patient denies exposure to infectious person. Initial Sepsis Screen: Does the patient meet any 2 criteria? No. Patient's initial sepsis screen is negative. Does the patient have a suspected source of infection? No. Patient's initial sepsis screen is negative. Risk Assessment: Do you want to hurt yourself or someone else? Patient reports no desire to harm self or others. Onset of symptoms was November 28, 2024 at 19:30. 21:39 Method Of Arrival: Ambulatory br2 21:39 Acuity: PRESTON 3 br2 Triage Assessment: 21:41 General: Appears comfortable, Behavior is calm, cooperative. Pain: Denies pain. GI: br2 Reports nausea, vomiting. 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 - Infectious Disease History:: Denies. - Social history:: Smoking status: Patient/guardian denies using tobacco, Patient uses alcohol, only on a social basis. Patient/guardian denies using street drugs. - Family history:: not pertinent. Screenin:00 [facility] ED Fall Risk Assessment (Adult) History of falling in the last 3 months, km10 including since admission No falls in past 3 months (0 pts) Confusion or Disorientation No (0 pts) Intoxicated or Sedated No (0 pts) Impaired Gait No (0 pts) Mobility Assist Device Used No (0 pt) Altered Elimination No (0 pt) Score/Fall Risk Level 0 - 2 = Low Risk Maintained a safe environment. Abuse screen: Denies threats or abuse. Denies injuries from another. Nutritional screening: No deficits noted. Tuberculosis screening: No symptoms or risk factors identified. Assessment: 21:58 General: Appears in no apparent distress. Behavior is calm, cooperative, Smells of km10 alcohol. Pain: Denies pain. Neuro: Level of Consciousness is awake, alert, obeys commands, Oriented to person, place, time, situation, Appropriate for age. Respiratory: Respiratory effort is even, unlabored. GI: Abdomen is distended, Stools are reported to be black. Reports vomiting, since 1 hour ago, 1 episode described as coffee ground. Patient currently denies abdominal pain. Derm: Skin is jaundiced. 23:12 Reassessment: pt vomited 1 L of blood with blood clots present. EC Provider notified. 10 11/29 00:33 Reassessment: Patient appears in no apparent distress at this time. Patient states km10 symptoms have improved. Vital Signs: 11/28 21:39 BP 133 / 102; Pulse 108; Resp 18; Temp 97.1; Pulse Ox 100% ; Weight 53.52 kg; Height 5 br2 ft. 6 in. ; Pain 0/10; 21:57 BP 124 / 83; Pulse 91; Resp 18; Pulse Ox 100% on R/A; km10 22:30 BP 105 / 64; Pulse 87; Resp 15; Temp 98.2; Pulse Ox 100% on R/A; km10 23:00 BP 121 / 66; Pulse 85; Resp 16; Temp 98.1(O); Pulse Ox 100% ; km10 23:54 BP 105 / 58; Pulse 86; Resp 16; Temp 98.2(O); Pulse Ox 100% on R/A; km10 11/29 00:15 km10 11/28 21:39 Body Mass Index 19.05 (53.52 kg, 167.64 cm) br2 11/28 21:39 Pain Scale: Adult br2 00:15 see paper charting 10 Vitals: 11/28 23:54 Cardiac Rhythm Assessment Regular. 10 Beulah Coma Score: 21:57 Eye Response: spontaneous(4). Motor Response: obeys commands(6). Verbal Response: km10 oriented(5). Total: 15. 23:34 Eye Response: spontaneous(4). Motor Response: obeys commands(6). Verbal Response: sp4 oriented(5). Total: 15. ED Course: 21:07 Patient arrived in ED. mr 21:16 Carlos Arriaza MD is Attending Physician. sp4 21:41 Triage completed. br2 21:41 Arm band placed on. br2 21:43 Vee Gardiner, RN is Primary Nurse. km10 21:57 Inserted saline lock: 18 gauge in left antecubital area, using aseptic technique. km10 22:00 Allergy band placed. Placed in gown. Bed in low position. Call light in reach. Side km10 rails up X2. Adult w/ patient. 22:00 Client placed on continuous cardiac and pulse oximetry monitoring. NIBP monitoring km10 applied. armature straightener on. 22:00 Door closed. Noise minimized. Warm blanket given. Pillow given. km10 22:07 CBC with Diff Sent. km10 22:07 CMP Sent. km10 23:00 Inserted saline lock: 22 gauge in right hand, using aseptic technique. km10 23:15 Provided Education on: Blood Transfusion. km10 23:16 initiated transfer to [facility] vk 23:53 Antibody Screen Sent. km10 11/29 00:00 Report given to Jennifer ALTMAN at [facility]. km10 00:00 Inserted saline lock: 20 gauge in right upper arm, using aseptic technique. Flushed km10 with 10 mL NS. 00:10 Patient was accepted to [facility] to Dr. 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 00:20 Chest Single View XRAY In Process Unspecified. EDMS 00:38 No provider procedures requiring assistance completed. Patient transferred, IV remains kd3 in place. Administered Medications: 11/28 22:15 Drug: Ondansetron IVP 8 mg IVP once; over 2 minutes Route: IVP; Site: left antecubital; 10 11/29 00:00 Follow up: Response: No adverse reaction [facility] 11/28 22:30 Drug: Famotidine IVP 20 mg IVP once; dilute with 10 mL 0.9% NaCl; give over 2 minutes Route: IVP; Site: left antecubital; 11/29 00:01 Follow up: Response: No adverse reaction 11/28 22:30 Drug: NS 0.9% IV 1000 ml IV at 1 bolus Per protocol; to be given as a bolus over 60 km10 minutes Route: IV; Rate: 1 bolus; Site: left antecubital; 11/29 00:00 Follow up: Response: No adverse reaction; IV Status: Completed infusion 11/28 23:00 Drug: Pantoprazole IVP 80 mg IVP once Route: IVP; Site: left antecubital; 11/29 00:01 Follow up: Response: No adverse reaction 11/28 23:09 Drug: Pantoprazole IV 8 mg/hr IV at 25 ml/hr continuous; (Standard dilution is 80 mg in 10 250 mL NS) Route: IV; Rate: 25 ml/hr; Site: left antecubital; 23:09 Drug: Octreotide Infusion (50 mcg/hr) - (Octreotide IV 500 mcg, NS 0.9% IV 500 ml) IV at 50 ml/hr continuous Route: IV; Rate: 50 ml/hr; Site: left hand; 23:09 Drug: Rocephin - Rocephin (cefTRIAXone) IVPB 1 grams IVPB once over 30 mins; (mix in 50 km10 mL NS) Route: IVPB; Infused Over: 30 mins; Site: left antecubital; 11/29 00:02 Follow up: Response: No adverse reaction; IV Status: Completed infusion 11/28 23:30 Drug: diphenhydrAMINE IVP 25 mg IVP once Route: IVP; Site: left antecubital; 11/29 00:02 Follow up: Response: No adverse reaction Medication: 00:35 VIS not applicable for this client. Outcome: 11/28 23:38 ER care complete, transfer ordered by MD. craig 11/29 00:38 Transferred by ground EMS kd3 Condition: stable Discharge instructions given to patient, Instructed on the need for transfer, Demonstrated understanding of instructions, 00:39 Patient left the ED. kd3 Signatures: Dispatcher [employer] EDLaverne Dubon, Lauryn Ratliff, RN RN kd3 Carlos Arriaza MD MD sp4 Jillian Steele Belinda, RN RN br2 Vee Gardiner RN RN km10 Corrections: (The following items were deleted from the chart) 11/28 23:54 21:58 General: Appears in no apparent distress. Behavior is calm, cooperative, km10 km10 11/29 00:33 00:33 Reassessment: Patient appears in no apparent distress at this time. km10 km10
--- NOTE | 2024-11-28 23:38 | EDPHYS ---
Physician Documentation [facility] Name: Barbara Purvis Age: 44 yrs Sex: Female : 1980 Arrival Date: 11/28/2024 Time: 21:05 Bed 4 Private MD: ED Physician Carlos Arriaza HPI: 11/28 21:16 This 44 yrs old Female presents to ER via Unassigned with complaints of sp4 Vomititng Blood. 23:34 Patient is 44-year-old female presents with acute hematemesis. Patient states she has sp4 history of liver cirrhosis with last management for hematemesis at [facility] on 10/12/2024. Patient states she received 4 esophageal bands. Is an alcoholic. Patient states that today she has developed bloody emesis and black stools. Patient reports no fever no dizziness no passing out.. 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 - Infectious Disease History:: Denies. - Social history:: Smoking status: Patient/guardian denies using tobacco, Patient uses alcohol, only on a social basis. Patient/guardian denies using street drugs. - Family history:: not pertinent. ROS: 23:34 Constitutional: Negative for fever, chills, and weight loss, positive for hematemesis sp4 and positive for melena 23:34 All other systems are negative, Exam: 23:34 Constitutional: Pale appearing thin appearing female, ill-appearing but nontoxic. sp4 Stable blood pressure Head/Face: Normocephalic, atraumatic. Eyes: Pupils equal round and reactive to light, extra-ocular motions intact. Lids and lashes normal. Conjunctiva and sclera are not injected. Cornea within normal limits. Periorbital areas with no swelling, redness, or edema. ENT: Nares patent. No nasal discharge, no septal abnormalities noted. Tympanic membranes are normal and external auditory canals are clear. Oropharynx with no redness, swelling, or masses, exudates, or evidence of obstruction, uvula midline. Mucous membranes moist. Neck: Trachea midline, no thyromegaly or masses palpated, and no cervical lymphadenopathy. Supple, full range of motion without nuchal rigidity, or vertebral point tenderness. Chest/axilla: Normal chest wall appearance and motion. Nontender with no deformity. No lesions are appreciated. Cardiovascular: Regular rate and rhythm with a normal S1 and S2. No gallops, murmurs, or rubs. Normal PMI, no JVD. No pulse deficits. Respiratory: Lungs have equal breath sounds bilaterally, clear to auscultation and percussion. No rales, rhonchi or wheezes noted. No increased work of breathing, no retractions or nasal flaring. Abdomen/GI: Soft, with normal bowel sounds. No distension or tympany. No guarding or rebound. No evidence of tenderness throughout. Protuberant abdomen with enlarged liver by palpation. Back: No spinal tenderness. No costovertebral tenderness. Skin: Warm, dry with normal turgor. Pale skin, with no rashes, no lesions, and no evidence of cellulitis. MS/ Extremity: Pulses equal, no cyanosis. Neurovascular intact. Full, normal range of motion. Neuro: Awake and alert, GCS 15, oriented to person, place, time, and situation. Cranial nerves II-XII grossly intact. Motor strength 5/5 in all extremities. Sensory grossly intact. Psych: Awake, alert, with orientation to person, place and time. Behavior, mood, and affect are within normal limits Vital Signs: 21:39 BP 133 / 102; Pulse 108; Resp 18; Temp 97.1; Pulse Ox 100% ; Weight 53.52 kg; Height 5 br2 ft. 6 in. ; Pain 0/10; 21:57 BP 124 / 83; Pulse 91; Resp 18; Pulse Ox 100% on R/A; km10 22:30 BP 105 / 64; Pulse 87; Resp 15; Temp 98.2; Pulse Ox 100% on R/A; km10 23:00 BP 121 / 66; Pulse 85; Resp 16; Temp 98.1(O); Pulse Ox 100% ; 10 23:54 BP 105 / 58; Pulse 86; Resp 16; Temp 98.2(O); Pulse Ox 100% on R/A; 11/29 00:15 11/28 21:39 Body Mass Index 19.05 (53.52 kg, 167.64 cm) br2 11/28 21:39 Pain Scale: Adult br2 00:15 see paper charting km10 [place] Coma Score: 11/28 21:57 Eye Response: spontaneous(4). Motor Response: obeys commands(6). Verbal Response: km10 oriented(5). Total: 15. 23:34 Eye Response: spontaneous(4). Motor Response: obeys commands(6). Verbal Response: sp4 oriented(5). Total: 15. MDM: 21:18 Medical Screening Exam initiated sp4 23:38 Differential diagnosis: Nonspecific abd pain, gastritis, cholecystitis, pancreatitis, sp4 viral gastroenteritis, gastroenteritis, Upper GI Bleeding. Data reviewed: vital signs, nurses notes, lab test result(s), radiologic studies, plain films. Consideration of Admission/Observation Patient was admitted/placed on observation. Escalation of care including admission/observation considered. Management of patient was discussed with the following: Car Attendant: Vending Manager at [facility].. 11/28 21:17 Order name: CBC with Diff [facility] 11/28 21:17 Order name: CMP; Complete Time: 23:08 4 11/28 21:17 Order name: Lipase; Complete Time: 23:08 [facility] 11/28 21:54 Order name: Alcohol Level; Complete Time: 23:08 [facility] 11/28 22:22 Order name: CBC Smear Scan [facility] 11/28 23:09 Order name: PRBC [facility] 11/28 23:11 Order name: ABO/RH typing [facility] 11/28 23:11 Order name: Antibody Screen [facility] 11/28 23:39 Order name: Chest Single View XRAY [facility] 11/28 21:17 Order name: IV Saline Lock; Complete Time: 22:01 [facility] 11/28 21:17 Order name: Labs collected and sent; Complete Time: 22:08 4 11/28 23:31 Order name: NPO; Complete Time: 23:53 sp4 Administered Medications: 22:15 Drug: Ondansetron IVP 8 mg IVP once; over 2 minutes Route: IVP; Site: left antecubital; [facility] 11/29 00:00 Follow up: Response: No adverse reaction [facility] 11/28 22:30 Drug: Famotidine IVP 20 mg IVP once; dilute with 10 mL 0.9% NaCl; give over 2 minutes [facility] Route: IVP; Site: left antecubital; 11/29 00:01 Follow up: Response: No adverse reaction 11/28 22:30 Drug: NS 0.9% IV 1000 ml IV at 1 bolus Per protocol; to be given as a bolus over 60 km10 minutes Route: IV; Rate: 1 bolus; Site: left antecubital; 11/29 00:00 Follow up: Response: No adverse reaction; IV Status: Completed infusion 11/28 23:00 Drug: Pantoprazole IVP 80 mg IVP once Route: IVP; Site: left antecubital; 11/29 00:01 Follow up: Response: No adverse reaction 11/28 23:09 Drug: Pantoprazole IV 8 mg/hr IV at 25 ml/hr continuous; (Standard dilution is 80 mg in km10 250 mL NS) Route: IV; Rate: 25 ml/hr; Site: left antecubital; 23:09 Drug: Octreotide Infusion (50 mcg/hr) - (Octreotide IV 500 mcg, NS 0.9% IV 500 ml) IV [facility] at 50 ml/hr continuous Route: IV; Rate: 50 ml/hr; Site: left hand; 23:09 Drug: Rocephin - Rocephin (cefTRIAXone) IVPB 1 grams IVPB once over 30 mins; (mix in 50 km10 mL NS) Route: IVPB; Infused Over: 30 mins; Site: left antecubital; 11/29 00:02 Follow up: Response: No adverse reaction; IV Status: Completed infusion 11/28 23:30 Drug: diphenhydrAMINE IVP 25 mg IVP once Route: IVP; Site: left antecubital; [facility] 11/29 00:02 Follow up: Response: No adverse reaction [facility] Disposition Summary: 11/28/24 23:38 Transfer Ordered Notes: Transfer Location: [facility]-System sp4 Reason: Higher level of care sp4 Condition: Serious sp4 Problem: new sp4 Symptoms: have improved sp4 Accepting Physician: [facility] attending senior integration architect(11/29/24 00:39) kd3 Diagnosis - Acute upper GI bleed, acute hematemesis, history of esophageal varices, liver sp4 cirrhosis, symptomatic anemia, acute blood loss anemia Forms: - Medication Reconciliation Form sp4 - SBAR form sp4 Critical care time excluding procedures: 11/28 23:36 Critical care time: Bedside Care: 36 minutes, Consultation: 12 minutes, Family sp4 Intervention: 12 minutes. Total time: 60 minutes Signatures: Dispatcher [employer] EDLauryn Guaman RN RN kd3 Carlos Arriaza MD MD sp4 Melissa Crowley RN RN br2 Vee Gardiner RN RN km10 Corrections: (The following items were deleted from the chart) 21:17 21:17 CBC+H.LAB.BRZ ordered. EDMS EDMS 21:17 21:17 COMPREHENSIVE METABOLIC PANEL+C.LAB.BRZ ordered. EDMS EDMS 21:17 21:17 LIPASE+C.LAB.BRZ ordered. EDMS EDMS 21:17 21:17 Test, Urine+UC.LAB.BRZ ordered. EDMS EDMS 21:55 21:55 ETHANOL+C.LAB.BRZ ordered. EDMS EDMS 23:39 23:39 Chest Single View+RAD.RAD.BRZ ordered. EDMS EDMS 11/29 00:39 11/28 23:38 [facility] attending senior integration architect rafa kd3
[2024-11-29] LABS: Blood Morphology Comment NOTED (NOT SEEN); Hypochromasia 1+; Platelet Estimate DECR; White Blood Cell Scan OK (OK)
[2024-11-29 01:04] VITALS: O2SAT 100
[2024-11-29 01:09] VITALS: BP 105/58; TEMP 98.2
--- NOTE | 2024-11-29 06:13 | RAD REPORT ---
EXAM DESCRIPTION: Chest Single View CLINICAL HISTORY: hematemesis COMPARISON: None TECHNIQUE: Single AP view of the chest. FINDINGS: Lung volumes adequate. Cardiac silhouette is normal in size. No pneumothorax. No large pleural effusion. No focal consolidation. No acute bony finding. IMPRESSION: No evidence of acute cardiopulmonary disease. Electronically signed by: Kang Ysuuf MD 11/29/2024 12:29 AM CDT RP TYG Due to temporary technical issues with the PACS/[employer] reporting system, reports are being kane d by the in-house radiologist without review as a courtesy to ensure prompt reporting the interpreting radiologist is fully responsible for the content of the report. Transcribed Date/Time: 11/29/2024 6:13 AM
== END 2024-11-29 00:39 | disposition short-term general hospital (02) ==
LOC: ER 21:05
PROC: 30233N1 Transfusion of Nonautologous Red Blood Cells into Peripheral Vein, Percutaneous Approach (ICD-10-PCS; principal; 2024-11-29)
DX: D62 Acute posthemorrhagic anemia (principal); I85.00 Esophageal varices without bleeding; K74.60 Unspecified cirrhosis of liver; F10.20 Alcohol dependence, uncomplicated
CPT/HCPCS: 85025; 36415; 86900; 86850; 86901; 86920 ×2; 83690; 80053; 71045; 82077; 36430; J1200; J2354; J2470 ×2; J2405; P9016 ×2; J7050 ×2; J7040; J7030; J0696